=== PATIENT | male | born 1955 | race African-American/Black ===

== ENCOUNTER 2023-01-02 19:37 | Inpatient (IN) | payer SELFPAY ==
[~2023-01-02] VITALS: Ht 188 cm; Wt 65.3 kg
[2023-01-02 20:26] LABS: BASOPHILS % 1.4 % (0.0-2.0); EOSINOPHILS % 11.9 % (0.0-5.0); HEMATOCRIT. 37.9 % (42.0-52.0); HEMOGLOBIN. 12.9 g/dL (14.0-18.0); MEAN CORPUSCULAR HEMOGLOBIN 30.1 pg (28.0-32.0); MEAN CORPUSCULAR VOLUME 88.1 fL (80.0-94.0); MONOCYTES % 8.1 % (2.0-8.0); NEUTROPHILS % 59.6 % (40.0-76.0); PLATELET 216 x1000/uL (130-400)
[2023-01-02 20:40] LABS: PROTHROMBIN TIME 11.1 sec (9.6-11.0)
[2023-01-02 20:42] LABS: CHLORIDE 99 mEq/L (98-107)
[2023-01-02] MEDS ORDERED: SODIUM CHLORIDE 0.45% 1,000 ML IV SCH (23:45)
[2023-01-02] MEDS ORDERED: DOCUSATE SODIUM 100MG CAPSULE PO PRN (23:45)
[2023-01-02] MEDS ORDERED: ACETAMINOPHEN 325MG TABLET PO PRN (23:45)
[2023-01-02] MEDS ORDERED: CLONIDINE 0.1MG TABLET PO PRN (23:45)
[2023-01-02] MEDS ORDERED: GUAIFENESIN 200MG/10ML SUGAR FREE UDC PO PRN (23:45)
[2023-01-02] MEDS ORDERED: DEXTROSE 50% WATER 50ML SYRINGE IV PRN (23:45)
[2023-01-02] MEDS ORDERED: INSULIN GLARGINE 100 UNITS/ML SUBCUT NR (23:45)
[2023-01-02] MEDS ORDERED: ONDANSETRON HCL 4MG/2ML INJ IV PRN (23:45)
[2023-01-03] VITALS (7 sets, daily range): BP systolic 127–161; BP diastolic 68–97
[2023-01-03] MEDS ORDERED: NPH,100V SUBCUT (00:11)
[2023-01-03] MEDS ORDERED: NPH,100V SQ (00:11)
[2023-01-03] MEDS ORDERED: METF-414 PO (00:11)
[2023-01-03] MEDS ORDERED: METF-416 PO ×2 (00:11)
[2023-01-03] MEDS: AMLODIPINE 5MG TABLET PO SCH ×2 (00:41→09:13)
[2023-01-03 00:44] LABS: PHOSPHORUS 3.6 mg/dL (2.5-4.9)
[2023-01-03 03:12] LABS: CLARITY URINE CLEAR (CLEAR); COLOR URINE YELLOW (YELLOW); KETONES URINE NEGATIVE (NEGATIVE); LEUKOCYTE ESTERASE URINE NEGATIVE (NEGATIVE); NITRITE URINE NEGATIVE (NEGATIVE); OCCULT BLOOD URINE NEGATIVE (NEGATIVE); PH URINE 7.5 (4.5-8.0); PROTEIN URINE NEGATIVE (NEGATIVE); SPECIFIC GRAVITY URINE 1.008 (1.005-1.030); UROBILINOGEN URINE 0.2 E.U./dL (0.2-1.0)
[2023-01-03] MEDS: BLOOD SUGAR DIAGNOSTIC STRIP TEST SCH ×4 (06:12→20:59)
[2023-01-03 06:25] LABS: BASOPHILS % 0.3 % (0.0-2.0); HEMATOCRIT. 36.1 % (42.0-52.0); HEMOGLOBIN. 12.5 g/dL (14.0-18.0); LYMPHOCYTES % 25.3 % (20.0-50.0); MEAN CORPUSCULAR HEMOGLOBIN 29.9 pg (28.0-32.0); MEAN CORPUSCULAR VOLUME 86.3 fL (80.0-94.0); MONOCYTES % 11.2 % (2.0-8.0); NEUTROPHILS % 50.2 % (40.0-76.0); PLATELET 231 x1000/uL (130-400); RED BLOOD CELL COUNT 4.19 mill/uL (4.7-6.1); RED CELL DISTRIBUTION WIDTH 13.9 % (11.6-14.6)
[2023-01-03 06:53] LABS: CHLORIDE 107 mEq/L (98-107)
[2023-01-03] MEDS: INSULIN LISPRO 100 UNITS/ML SUBCUT SCH ×4 (07:06→21:06)
[2023-01-03 07:11] LABS: CREATINE KINASE 276 IU/L (39-308); CREATINE KINASE MB FRACTION 3.5 ng/mL (0.5-3.6); T4 FREE 0.91 ng/dL (0.76-1.46)
[2023-01-03] MEDS: ENOXAPARIN 40MG/0.4ML SYR SUBCUT SCH (09:14)
[2023-01-03] MEDS ORDERED: INSULIN GLARGINE 100 UNITS/ML SUBCUT SCH (10:00)
[2023-01-03 10:45] LABS: VITAMIN B12 SERUM 228 pg/mL (211-911)
[2023-01-03] MEDS ORDERED: KETOROLAC 15MG/ML VIAL IV PRN (14:00)
[2023-01-03 18:13] LABS: CREATINE KINASE MB FRACTION 3.4 ng/mL (0.5-3.6)
[2023-01-03] MEDS: FAMOTIDINE 20MG TABLET PO SCH (20:54)
[2023-01-04] VITALS: BP 127/78
[2023-01-04 04:00] VITALS: BP 143/81
[2023-01-04] MEDS: BLOOD SUGAR DIAGNOSTIC STRIP TEST SCH ×4 (06:38→21:52)
[2023-01-04 06:47] LABS: CHLORIDE 101 mEq/L (98-107)
[2023-01-04 06:52] LABS: HEMATOCRIT. 39.6 % (42.0-52.0); HEMOGLOBIN. 13.7 g/dL (14.0-18.0); MEAN CORPUSCULAR HEMOGLOBIN 29.7 pg (28.0-32.0); MEAN CORPUSCULAR VOLUME 85.7 fL (80.0-94.0); MEAN PLATELET VOLUME 8.3 fl (7.4-10.4); PLATELET 229 x1000/uL (130-400); RED BLOOD CELL COUNT 4.62 mill/uL (4.7-6.1); RED CELL DISTRIBUTION WIDTH 13.9 % (11.6-14.6)
[2023-01-04 08:00] VITALS: BP 159/95
[2023-01-04] MEDS: AMLODIPINE 5MG TABLET PO SCH (08:53)
[2023-01-04] MEDS: ENOXAPARIN 40MG/0.4ML SYR SUBCUT SCH (09:00)
[2023-01-04] MEDS: INSULIN LISPRO 100 UNITS/ML SUBCUT SCH ×4 (09:04→21:55)
[2023-01-04] MEDS ORDERED: SODIUM CHLORIDE 0.9% 500 ML IV ONE (09:45)
[2023-01-04 10:18] LABS: PLATELET ESTIMATE NORMAL
[2023-01-04 12:00] VITALS: BP 142/88
[2023-01-04] MEDS ORDERED: INSULIN GLARGINE 100 UNITS/ML SUBCUT NR (12:45)
[2023-01-04 16:00] VITALS: BP 129/79
[2023-01-04 20:00] VITALS: BP 146/84
[2023-01-04] MEDS: FAMOTIDINE 20MG TABLET PO SCH (21:52)
[2023-01-05] VITALS: BP 134/84
[2023-01-05 04:00] VITALS: BP 137/83
[2023-01-05 06:15] LABS: CHLORIDE 100 mEq/L (98-107)
[2023-01-05] MEDS: BLOOD SUGAR DIAGNOSTIC STRIP TEST SCH (06:20)
[2023-01-05 06:26] LABS: BASOPHILS % 2.2 % (0.0-2.0); EOSINOPHILS % 11.9 % (0.0-5.0); HEMATOCRIT. 42.8 % (42.0-52.0); HEMOGLOBIN. 13.9 g/dL (14.0-18.0); LYMPHOCYTES % 30.9 % (20.0-50.0); MEAN CORPUSCULAR HEMOGLOBIN 28.8 pg (28.0-32.0); MEAN CORPUSCULAR VOLUME 88.7 fL (80.0-94.0); MONOCYTES % 8.2 % (2.0-8.0); NEUTROPHILS % 46.8 % (40.0-76.0); PLATELET 222 x1000/uL (130-400); RED BLOOD CELL COUNT 4.83 mill/uL (4.7-6.1); RED CELL DISTRIBUTION WIDTH 13.8 % (11.6-14.6)
[2023-01-05 07:49] VITALS: BP 131/76
[2023-01-05] MEDS: ENOXAPARIN 40MG/0.4ML SYR SUBCUT SCH (08:34)
[2023-01-05] MEDS: INSULIN LISPRO 100 UNITS/ML SUBCUT SCH (08:53)
[2023-01-05] MEDS ORDERED: AMLODIPINE 10MG TABLET PO SCH (09:00)
[2023-01-05] MEDS ORDERED: AMLO10TA80 PO (09:49)
[2023-01-05] MEDS ORDERED: NAPR500T7 MT (09:49)
[2023-01-05] MEDS ORDERED: FAMO20TA8 PO (09:49)
[2023-01-05 10:31] VITALS: BP 131/76
== END 2023-01-05 11:38 | disposition home or self-care (01) | DRG 351 ==
LOC: ER 19:37 → 7WST 21:22 → EDBEDREQTM 21:33 → EDBEDREQ 21:33 → ENRESERV 23:07
PROVIDERS: ADMIT Internal Medicine; ATTEND Internal Medicine
DX: S46.001A Unspecified injury of muscle(s) and tendon(s) of the rotator cuff of right shoulder, initial encounter (principal); E83.51 Hypocalcemia; G45.9 Transient cerebral ischemic attack, unspecified; I10 Essential (primary) hypertension; I44.0 Atrioventricular block, first degree; E11.9 Type 2 diabetes mellitus without complications; E78.5 Hyperlipidemia, unspecified; Z79.4 Long term (current) use of insulin; Z79.899 Other long term (current) drug therapy; W18.30XA Fall on same level, unspecified, initial encounter; Y93.89 Activity, other specified; Y92.89 Other specified places as the place of occurrence of the external cause; Y99.8 Other external cause status
CPT/HCPCS: 36415; 71045; 73030; 80053; 80061; 81003; 82010; 82330; 82550; 82553; 82607; 82962; 83036; 83735; 84100; 84439; 84443; 84484; 85025; 93005; 93306; 97162; 99285; J1650; J1815; J1885